=== PATIENT | female | born 1970 | race Caucasian/White ===

== ENCOUNTER 2017-11-12 09:42 | Day surgery (SDC) | payer BC ==
[~2017-11-12 09:42] MED LIST: Sodium Chloride 0.9% 10 ML Syringe FLUSH PRN; Sodium Chloride 0.9% 2.5 ML Syringe FLUSH PRN
[2017-11-12] MEDS ORDERED: Glycopyrrolate 0.2 MG/ML SDV ONE (10:30)
[2017-11-12] MEDS ORDERED: Lidocaine 2% 5 ML SDV ONE (10:30)
[2017-11-12] MEDS ORDERED: Ondansetron 4 MG/2 ML SDV ONE (10:30)
[2017-11-12] MEDS ORDERED: Ketorolac 30 MG/ML SDV ONE (10:30)
[2017-11-12] MEDS ORDERED: fentaNYL 100 MCG/2 ML SDV ONE (10:31)
[2017-11-12] MEDS ORDERED: Midazolam 1 MG/ML 2 ML SDV ONE (10:31)
[2017-11-12] MEDS ORDERED: Propofol 200 MG/20 ML SDV ONE (10:32)
[2017-11-12] MEDS ORDERED: Scopolamine 1.5 MG Transdermal Patch TRDERM PRN (10:48)
--- NOTE | 2017-11-12 10:54 | PCM.PREANE ---
Preanesthetic Assessment - Anesthesia/Transfusion/Family Hx Transfusion History: No Prior Transfusion(s) - Physical Assessment Height: 1.69 m Weight: 80.286 kg - Allergies Allergies/Adverse Reactions: Allergies Allergy/AdvReac Type Severity Reaction Status Date / Time morphine Allergy I get angry Verified 11/07/17 09:31 PreAnesthesia Questionnaire HEENT History: Reports: Other (See Below) Other HEENT History: wears glasses/contacts Gastrointestinal History: Reports: GERD Genitourinary History: Reports: None [employer] ENGINEER History: Reports: - Past Surgical History Head Surgeries/Procedures: Reports: None HEENT Surgical History: Reports: Oral Surgery Female Surgical History: Reports: D&C, Tubal Ligation, Other (See Below) Other Female Surgeries/Procedures: laparotomy bilteratoma excision/BTL - SUBSTANCE USE Smoking Status *Q: Current Every Day Smoker Tobacco Use Within Last Twelve Months: Cigarettes Recreational Drug Use History: No - HOME MEDS Home Medications: Home Meds Esomeprazole Magnesium [Nexium] 1 tab PO ASDIRECTED PRN 11/07/17 [History] Ibuprofen [Advil] 1 tab PO ASDIRECTED PRN 11/07/17 [History] - CURRENT (IN HOUSE) MEDS Current Meds: Current Medications Sodium Chloride (Saline Flush) 10 ml FLUSH ASDIRECTED PRN PRN Reason: Keep Vein Open Sodium Chloride (Saline Flush) 2.5 ml FLUSH ASDIRECTED PRN PRN Reason: Keep Vein Open Discontinued Medications Fentanyl (Sublimaze) Confirm Administered Dose 100 mcg .ROUTE .STK-MED ONE Stop: 11/12/17 10:32 Glycopyrrolate (Robinul) Confirm Administered Dose 0.2 mg .ROUTE .STK-MED ONE Stop: 11/12/17 10:31 Ketorolac Tromethamine (Toradol) Confirm Administered Dose 30 mg .ROUTE .STK- MED ONE Stop: 11/12/17 10:31 Lidocaine (Xylocaine-Mpf 2%) Confirm Administered Dose 5 ml .ROUTE .STK-MED ONE Stop: 11/12/17 10:31 Midazolam HCl (Versed 1 Mg/Ml) Confirm Administered Dose 2 mg .ROUTE .STK-MED ONE Stop: 11/12/17 10:32 Ondansetron HCl (Zofran) Confirm Administered Dose 4 mg .ROUTE .STK-MED ONE Stop: 11/12/17 10:31 Propofol (Diprivan 20 Ml) Confirm Administered Dose 200 mg .ROUTE .STK-MED ONE Stop: 11/12/17 10:33
--- NOTE | 2017-11-12 11:04 | PCM.PREANE ---
Preanesthetic Assessment - Anesthesia/Transfusion/Family Hx Anesthesia History: Prior Anesthesia Reaction Type of Anesthesia Reaction: Excessive Nausea/Vomiting Family History of Anesthesia Reaction: No Transfusion History: No Prior Transfusion(s) - Review of Systems General: No Symptoms Pulmonary: No Symptoms Cardiovascular: No Symptoms Gastrointestinal: No Symptoms Neurological: No Symptoms Other: Reports: None - Physical Assessment NPO Status Date: 11/11/17 Height: 1.69 m Weight: 80.286 kg ASA Class: 2 Mental Status: Alert & Oriented x3 Airway Class: Mallampati = 1 Dentition: Reports: Normal Dentition ROM/Head Extension: Full Lungs: Clear to Auscultation, Normal Respiratory Effort Cardiovascular: Regular Rate, Regular Rhythm - Allergies Allergies/Adverse Reactions: Allergies Allergy/AdvReac Type Severity Reaction Status Date / Time morphine Allergy I get angry Verified 11/07/17 09:31 - Blood Blood Available: No - Anesthesia Plan Pre-Op Medication Ordered: Other (scop patch) - Acknowledgements Anesthesia Type Planned: General Anesthesia Pt an Appropriate Candidate for the Planned Anesthesia: Yes Alternatives and Risks of Anesthesia Discussed w Pt/Guardian: Yes Pt/Guardian Understands and Agrees with Anesthesia Plan: Yes PreAnesthesia Questionnaire HEENT History: Reports: Other (See Below) Other HEENT History: wears glasses/contacts Gastrointestinal History: Reports: GERD Genitourinary History: Reports: 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: - Past Surgical History Head Surgeries/Procedures: Reports: None HEENT Surgical History: Reports: Oral Surgery Female Surgical History: Reports: D&C, Tubal Ligation, Other (See Below) Other Female Surgeries/Procedures: laparotomy bilteratoma excision/BTL - SUBSTANCE USE Smoking Status *Q: Current Every Day Smoker Tobacco Use Within Last Twelve Months: Cigarettes Recreational Drug Use History: No - HOME MEDS Home Medications: Home Meds Esomeprazole Magnesium [Nexium] 1 tab PO ASDIRECTED PRN 11/07/17 [History] Ibuprofen [Advil] 1 tab PO ASDIRECTED PRN 11/07/17 [History] - CURRENT (IN HOUSE) MEDS Current Meds: Current Medications Scopolamine (Transderm-Scop) 1.5 mg TRDERM Q72H PRN PRN Reason: Nausea/Vomiting Last Admin: 11/12/17 10:59 Dose: 1.5 mg Sodium Chloride (Saline Flush) 10 ml FLUSH ASDIRECTED PRN PRN Reason: Keep Vein Open Sodium Chloride (Saline Flush) 2.5 ml FLUSH ASDIRECTED PRN PRN Reason: Keep Vein Open Discontinued Medications Fentanyl (Sublimaze) Confirm Administered Dose 100 mcg .ROUTE .STK-MED ONE Stop: 11/12/17 10:32 Glycopyrrolate (Robinul) Confirm Administered Dose 0.2 mg .ROUTE .STK-MED ONE Stop: 11/12/17 10:31 Ketorolac Tromethamine (Toradol) Confirm Administered Dose 30 mg .ROUTE .STK- MED ONE Stop: 11/12/17 10:31 Lidocaine (Xylocaine-Mpf 2%) Confirm Administered Dose 5 ml .ROUTE .STK-MED ONE Stop: 11/12/17 10:31 Midazolam HCl (Versed 1 Mg/Ml) Confirm Administered Dose 2 mg .ROUTE .STK-MED ONE Stop: 11/12/17 10:32 Ondansetron HCl (Zofran) Confirm Administered Dose 4 mg .ROUTE .STK-MED ONE Stop: 11/12/17 10:31 Propofol (Diprivan 20 Ml) Confirm Administered Dose 200 mg .ROUTE .STK-MED ONE Stop: 11/12/17 10:33
[2017-11-12] MEDS ORDERED: Lactated Ringers 1,000 ML IV SCH (11:30)
[2017-11-12] MEDS ORDERED: Phenylephrine/Normal Saline 100 MCG/ML 10 ML Syringe ONE (11:40)
--- NOTE | 2017-11-12 12:11 | PCM.OPNOTE ---
- General Post-Op/Procedure Note Date of Surgery/Procedure: 11/12/17 Operative Procedure(s): Operative hysteroscopy with polypectomy. Fractional D&C Findings: Right fundal polypoid lesion Normal cavity otherwise Pre Op Diagnosis: Abnormal uterine bleeding Post-Op Diagnosis: Endometrial polyp Anesthesia Technique: General LMA Primary Surgeon: Cherrie Duncan Pathology: endometrial polyp Endometrial/endocervical curretings Fluid Replacement, Intraop: 800 EBL in mLs: 5 Complications: none known Condition: Good Free Text/Narrative:: Dictation [id number]
--- NOTE | 2017-11-12 12:28 | PCM.POSTAN ---
POST ANESTHESIA ASSESSMENT - MENTAL STATUS Mental Status: Alert, Oriented - RESPIRATORY Respiratory Status: Respiratory Rate WNL, Airway Patent, O2 Saturation Stable - CARDIOVASCULAR CV Status: Pulse Rate WNL, Blood Pressure Stable - GASTROINTESTINAL GI Status: No Symptoms - POST OP HYDRATION Hydration Status: Adequate & Stable
--- NOTE | 2017-11-12 12:28 | PCM48HPAN ---
Post Anesthesia Note - EVALUATION WITHIN 48HRS OF ANESTHETIC Vital Signs in Normal Range: Yes Patient Participated in Evaluation: Yes Respiratory Function Stable: Yes Airway Patent: Yes Cardiovascular Function Stable: Yes Hydration Status Stable: Yes Pain Control Satisfactory: Yes Nausea and Vomiting Control Satisfactory: Yes Mental Status Recovered: Yes Resp Rate: 10
[2017-11-12 13:12] VITALS: BP 126/83
--- NOTE | 2017-11-12 14:55 | OR ---
SURGEON: Cherrie Duncan M.D. DATE OF PROCEDURE: 11/12/2017 PREOPERATIVE DIAGNOSIS: Abnormal uterine bleeding. POSTOPERATIVE DIAGNOSIS: Endometrial polyp. PROCEDURES: 1. Operative hysteroscopy with polypectomy. 2. Fractional D and C. ANESTHESIA: General LMA. ESTIMATED BLOOD LOSS: Less than 5 mL. IV FLUIDS: 100 mL of crystalloid. DISPOSITION: The patient to PACU, stable. PROCEDURE DETAILS: Shasta is a 46-year-old female, who has had ongoing difficulty over the past few months with the irregular vaginal bleeding, spotting. Sonogram reveals a 6.6 mm endometrial stripe. The patient is quite nervous to have an office evaluation with endometrial biopsy and/or sonohysterogram and prefers to go directly to the OR where she can utilize some anesthesia to help to keep her comfortable during the procedure. Therefore, we discussed proceeding with a diagnostic hysteroscopy, operative as indicated. Risks of the procedure have been discussed and proper consent obtained. The patient was taken to the operating room where she underwent general LMA, was placed in modified dorsal position, was prepped and draped in the usual sterile fashion. SCDs to lower extremities. Bladder was drained with a Vasquez. Time- out was performed. After being prepped and draped in usual sterile fashion, speculum was introduced in the vagina. Anterior lip of cervix was grasped with an Allis clamp. A 5 mm hysteroscope was introduced in the endometrial cavity using normal saline as distention media. There is a right fundal polypoid lesion noted. Otherwise, no other polypoid lesions or abnormalities of the uterine cavity are observed. The cervix is now gently dilated to 6 mm. Diagnostic hysteroscope was removed. MyoSure was introduced and using the MyoSure device, the polypoid lesion was easily resected. The specimen to be sent to pathology. The remainder of the cavity appeared normal as easily visualized. Photographs were taken of the above. MyoSure device was now removed. The gentle curettage of the endometrium and endocervical tissue was now obtained. Specimens will be sent to pathology. Hemostasis appears evident. Sponge and instrument counts correct x2. The patient tolerated the procedure well overall. She will go to PACU in stable condition. Specimens to pathology. RYANNE / SCOTT /[id number]
== END 2017-11-12 13:10 | disposition home or self-care (01) ==
LOC: MW.SDS 09:42
PROVIDERS: ATTEND Obstetrics & Gynecology
DX: N84.0 Polyp of corpus uteri (principal); K21.9 Gastro-esophageal reflux disease without esophagitis; F17.210 Nicotine dependence, cigarettes, uncomplicated; Z79.899 Other long term (current) drug therapy; Z88.5 Allergy status to narcotic agent
CPT/HCPCS: 36415; 58558; 84703; 85027; A9270; J1885; J2250; J2405; J3010; J7120; J2704

== ENCOUNTER 2023-10-25 10:25 | Emergency (ER) | payer BC ==
[2023-10-25 10:53] LABS: BASOPHILS ABSOLUTE AUTO 0.07 K/uL (0.00-0.20); BASOPHILS PERCENT AUTO 0.9 % (0.0-1.0); EOSINOPHILS ABSOLUTE AUTO 0.08 K/uL (0.00-0.45); HEMATOCRIT 44.9 % (37.0-47.0); HEMOGLOBIN 15.8 g/dL (12.0-16.0); IMMATURE GRAN ABSOLUTE AUTO 0.03 K/uL (0.00-0.05); IMMATURE GRAN PERCENT AUTO 0.4 % (0.0-0.4); LYMPHOCYTES ABSOLUTE AUTO 2.29 K/uL (1.00-4.80); LYMPHOCYTES PERCENT AUTO 29.4 % (24.0-44.0); MEAN CORPUSCULAR HEMOGLOBIN 31.5 pg (28.0-32.0); MEAN CORPUSCULAR HGB CONC 35.2 g/dL (32.0-36.0); MEAN CORPUSCULAR VOLUME 89.6 fL (83.0-99.0); MEAN PLATELET VOLUME 9.7 fL (9.4-12.3); MONOCYTES ABSOLUTE AUTO 0.52 K/uL (0.00-0.80); MONOCYTES PERCENT AUTO 6.7 % (0.0-8.0); NEUTROPHILS ABSOLUTE AUTO 4.81 K/uL (1.80-7.70); NEUTROPHILS PERCENT AUTO 61.6 % (41.0-71.0); PLATELET COUNT,PLT 286 K/uL (150-400); RED BLOOD CELL COUNT 5.01 M/uL (4.10-5.30)
[2023-10-25] MEDS: Sodium Chloride 0.9% 1,000 ML IV ONE (10:56)
[2023-10-25] MEDS: Ketorolac 30 MG/ML SDV IVPUSH ONE (11:03)
[2023-10-25 11:05] LABS: PH,VENOUS 7.4 (7.31-7.41)
[2023-10-25] MEDS: Ondansetron 4 MG/2 ML SDV IVPUSH ONE (11:06)
[2023-10-25 11:13] LABS: HEMOGLOBIN A1C 10.9 %
[2023-10-25 11:23] LABS: A/G RATIO 0.7 (0.9-1.6); ALANINE AMINOTRANSFERASE,ALT 40 IU/L (14-63); ALBUMIN 3.3 g/dL (3.4-5.0); ALKALINE PHOSPHATASE 124 U/L (46-116); ASPARTATE AMNIOTRANSFERASE,AST 22 IU/L (15-37); BILIRUBIN TOTAL 0.3 mg/dL (0.2-1.0); BLOOD UREA NITROGEN,BUN 8 mg/dL (7.0-18.0); CARBON DIOXIDE,CO2 24.5 mmol/L (21.0-32.0); CHLORIDE,CL 98 mmol/L (98-107); CREATININE 0.9 mg/dL (0.6-1.0); EST CRCL DRUG DOSING (CG) 69.49 mL/min; GLUCOSE RANDOM 348 mg/dL (74-106); LIPASE 42 U/L (16-77); MAGNESIUM 1.7 mg/dL (1.8-2.4); POTASSIUM,K 4.4 mmol/L (3.5-5.1); PROTEIN TOTAL,TP 7.8 g/dL (6.4-8.2); SODIUM,NA 133 mmol/L (136-145)
[2023-10-25 11:25] LABS: ESTIMATED GFR 76 mL/min (>60)
[2023-10-25 11:32] LABS: LACTIC ACID 1.7 mmol/L (0.4-2.0)
[2023-10-25 11:51] LABS: APPEARANCE,URINE CLEAR; BILIRUBIN,URINE NEGATIVE (NEGATIVE); COLOR,URINE YELLOW; GLUCOSE,URINE >=1000 mg/dL (NEGATIVE); KETONES,URINE NEGATIVE (NEGATIVE); LEUKOCYTE ESTERASE,URINE NEGATIVE (NEGATIVE); NITRITE,URINE POSITIVE (NEGATIVE); OCCULT BLOOD,URINE NEGATIVE (NEGATIVE); PH,URINE 5.5 (5.0-8.0); PROTEIN,URINE NEGATIVE (NEGATIVE); UROBILINOGEN,URINE 0.2 EU/dL (<2.0)
[2023-10-25 12:01] LABS: BACTERIA,URINE 2+ (NEGATIVE); EPITHELIAL CELLS,URINE RARE (NONE-FEW)
[2023-10-25] MEDS: cefTRIAXone 1 GM in Sodium Chloride 0.9% 50 ML IV ONE (12:08)
[2023-10-25 14:58] VITALS: BP 129/61; PULSE 76
== END 2023-10-25 14:57 | disposition home or self-care (01) ==
LOC: MW.ED 10:25
DX: N39.0 Urinary tract infection, site not specified (principal); E11.9 Type 2 diabetes mellitus without complications; K21.9 Gastro-esophageal reflux disease without esophagitis; Z75.8 Other problems related to medical facilities and other health care; Z88.5 Allergy status to narcotic agent; Z79.899 Other long term (current) drug therapy; Z86.16 Personal history of COVID-19; F17.210 Nicotine dependence, cigarettes, uncomplicated
CPT/HCPCS: 36415; 70450; 71045; 80053; 81001; 82009; 82803; 82947; 83036; 83605; 83690; 83735; 84484; 85025; 87086; 93005; 96361; 96365; 96375; 99285; J0696; J1885; J3490; J7030; 87088; 87186; 93010; 99284

== ENCOUNTER 2025-04-23 16:27 | Emergency (ER) | payer BC ==
[2025-04-23 16:35] VITALS: BP 135/78; PULSE 112
== END 2025-04-23 17:19 | disposition left against medical advice (07) ==
LOC: MW.ED 16:27
DX: Z53.21 Procedure and treatment not carried out due to patient leaving prior to being seen by health care provider (principal)